=== PATIENT | female | born 1945 | race Caucasian/White ===

== ENCOUNTER 2016-07-30 17:48 | Emergency (ER) | payer SELFPAY ==
[~2016-07-30] VITALS: Ht 149.9 cm; Wt 86.3 kg
[~2016-07-30 17:48] MED LIST: OMEP20 PO
[2016-07-30] MEDS ORDERED: OMEG300C3 PO (17:53)
[2016-07-30 19:14] LABS: BASOPHILS % (AUTO) 0.4 % (0.0-2.0); EOSINOPHILS % (AUTO) 2.1 % (1.0-6.0); HEMATOCRIT 41.5 % (36-46); HEMOGLOBIN 13.7 g/dL (12.0-16.0); LYMPHOCYTES # (AUTO) 2.7 K/uL (1.0-4.8); LYMPHOCYTES % (AUTO) 35.3 % (22.0-44.0); MEAN CORPUSCULAR HEMOGLOBIN 30.4 pg (26.0-34.0); MEAN CORPUSCULAR VOLUME 92 fL (80-100); MONOCYTES # (AUTO) 0.5 K/uL (0.1-1.0); MONOCYTES % (AUTO) 7.1 % (2.0-9.0); NEUTROPHILS # (AUTO) 4.1 K/uL (1.8-7.7); NEUTROPHILS % (AUTO) 55.1 % (40.0-70.0); PLATELET COUNT (AUTO) 314 K/uL (150-450); RED CELL DISTRIBUTION WIDTH 13.3 % (11.5-14.5); WHITE BLOOD COUNT (AUTO) 7.5 K/uL (4.5-11.0)
[2016-07-30 19:34] LABS: ANION GAP 10 mmol/L (8-16); CALCIUM, TOTAL 8.6 mg/dL (8.8-10.5); CARBON DIOXIDE 27 mmol/L (22-29); CHLORIDE 100 mmol/L (98-107); CREATININE 0.72 mg/dL (0.60-1.30); GLOMERULAR FILTR. RATE CALC > 60 mL/min (>60); SODIUM SERUM 137 mmol/L (136-145); UREA NITROGEN, BLOOD 14 mg/dL (7-18)
[2016-07-30 19:37] LABS: ALANINE AMINOTRANSFERASE 32 U/L (12-78); ALBUMIN 3.3 g/dL (3.4-5.0); ASPARTATE AMINOTRANSFERASE 24 U/L (15-37); BILIRUBIN,TOTAL 0.3 mg/dL (0.1-1.0); TOTAL PROTEIN, SERUM 7.5 g/dL (6.4-8.2)
[2016-07-30 21:26] LABS: PROTHROMBIN TIME 10.4 SEC (9.4-11.6)
[2016-07-30 21:33] LABS: B-TYPE NATRIURETIC PEPTIDE < 5 pg/mL (0-100)
[2016-07-30] MEDS ORDERED: KETOROLAC TROMETHAMINE 30 MG/ML VIAL IVP ONE (22:15)
[2016-07-30] MEDS ORDERED: CefTRIAXone 1 GM/DEXTROSE 50 ML IV ONE (22:15)
[2016-07-30 23:11] VITALS: BP 125/69
== END 2016-07-30 23:33 | disposition home or self-care (01) ==
LOC: EMS 17:51
DX: I82.491 Acute embolism and thrombosis of other specified deep vein of right lower extremity (principal); K21.9 Gastro-esophageal reflux disease without esophagitis; E11.9 Type 2 diabetes mellitus without complications; Z90.49 Acquired absence of other specified parts of digestive tract
CPT/HCPCS: 36415; 71010; 80053; 83880; 84484; 85025; 85379; 85610; 85730; 87040; 93005; 93971; 96365; 99285; J0696; J1885